=== PATIENT | male | born 1985 | race African-American/Black ===

== ENCOUNTER 2020-09-13 19:21 | Emergency (ER) | payer BC ==
[2020-09-13 19:34] VITALS: BP 126/86; PULSE 87; TEMP 100.2; BMI 31.5
[2020-09-13] MEDS ORDERED: IBUPROFEN 600 MG TABLET (FP) PO ONE ×2 (20:52→20:54)
== END 2020-09-13 21:02 | disposition home or self-care (01) ==
LOC: FER 19:21
DX: G44.209 Tension-type headache, unspecified, not intractable (principal)
CPT/HCPCS: 70450-TC; 99284-25